=== PATIENT | male | born 1945 | race Caucasian/White ===

== ENCOUNTER 2018-07-11 06:45 | Day surgery (SDC) | payer OTHER, MEDICARE ==
[2018-07-11] MEDS ORDERED: Lidocaine 2% 5 ML SDV ONE (07:01)
[2018-07-11] MEDS ORDERED: fentaNYL 100 MCG/2 ML SDV ONE (07:02)
[2018-07-11] MEDS ORDERED: Propofol 200 MG/20 ML SDV ONE (07:02)
[2018-07-11] MEDS ORDERED: Midazolam 1 MG/ML 2 ML SDV ONE (07:02)
[2018-07-11] MEDS ORDERED: Bupivacaine 0.25%/EPINEPHrine 1:200,000 10 ML SDV ONE ×2 (07:49→09:09)
[2018-07-11] MEDS ORDERED: ceFAZolin 2 GM in Premix Bag 1 BAG IV ONE (08:00)
[2018-07-11] MEDS ORDERED: Lactated Ringers 1,000 ML IV SCH (08:00)
[2018-07-11] MEDS ORDERED: traMADol 50 MG Tab PO PRN (08:00)
[2018-07-11] MEDS ORDERED: Bupivacaine 0.25%/EPINEPHrine 1:200,000 10 ML SDV INJECT ONE (08:00)
--- NOTE | 2018-07-11 08:12 | PCM.PREANE ---
Preanesthetic Assessment - Anesthesia/Transfusion/Family Hx Anesthesia History: Prior Anesthesia Without Reaction Family History of Anesthesia Reaction: No Transfusion History: No Prior Transfusion(s) Intubation History: Unknown - Review of Systems General: No Symptoms Pulmonary: No Symptoms Cardiovascular: No Symptoms Gastrointestinal: No Symptoms Neurological: No Symptoms Other: Reports: None - Physical Assessment NPO Status Date: 07/11/18 NPO Status Time: 06:00 O2 Sat by Pulse Oximetry: 95 Respiratory Rate: 24 Vital Signs: Last Vital Signs Temp 35.9 C 07/11/18 07:25 Pulse 59 L 07/11/18 07:25 Resp 24 H 07/11/18 07:25 BP 120/76 07/11/18 07:25 Pulse Ox 95 07/11/18 07:25 Height: 1.75 m Weight: 122.924 kg ASA Class: 3 Mental Status: Alert & Oriented x3 Airway Class: Mallampati = 2 Dentition: Reports: Edentulous Thyro-Mental Finger Breadths: 3 Mouth Opening Finger Breadths: 3 ROM/Head Extension: Full Lungs: Decreased Breath Sounds, Crackles Cardiovascular: Irregular Rhythm - Allergies Allergies/Adverse Reactions: Allergies Allergy/AdvReac Type Severity Reaction Status Date / Time No Known Allergies Allergy Verified 07/09/18 15:48 - Blood Blood Available: No - Anesthesia Plan Pre-Op Medication Ordered: None - Acknowledgements Anesthesia Type Planned: MAC Pt an Appropriate Candidate for the Planned Anesthesia: Yes Alternatives and Risks of Anesthesia Discussed w Pt/Guardian: Yes Pt/Guardian Understands and Agrees with Anesthesia Plan: Yes PreAnesthesia Questionnaire HEENT History: Reports: Cataract, Hard of Hearing, Other (See Below) Other HEENT History: uses reading glasses, deaf in right ear Cardiovascular History: Reports: Afib, Heart Failure (in 2014), Hypertension Respiratory History: Reports: COPD, PE, Sleep Apnea Other Respiratory History: uses CPAP, 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 Gastrointestinal History: Reports: None, Hepatitis Other Gastrointestinal History: hx of Hepatitis B as a child Musculoskeletal History: Reports: Gout, Osteoarthritis Other Musculoskeletal History: arthritis in hip, hematoma right arm Neurological History: Reports: Concussion, Other (See Below) Other Neuro History: has tremors in his hands ("from medication") Endocrine/Metabolic History: Reports: Diabetes, Type II, Obesity/BMI 30+ (BMI 40 ) Hematologic History: Reports: Anticoagulation Therapy (off last four days) - Infectious Disease History Infectious Disease History: Reports: Hepatitis A - Past Surgical History Head Surgeries/Procedures: Reports: None HEENT Surgical History: Reports: Cataract Surgery Cardiovascular Surgical History: Reports: Other (See Below) Other Cardiovascular Surgeries/Procedures: placement of IVC filter Respiratory Surgical History: Reports: Lung Resection Other Respiratory Surgeries/Procedures: Left lower lobe removed due to "emphysema" GI Surgical History: Reports: Hernia, Inguinal - SUBSTANCE USE Smoking Status *Q: Former Smoker Tobacco Use Within Last Twelve Months: No Recreational Drug Use History: No - HOME MEDS Home Medications: Home Meds Albuterol Sulfate 1 vial INH Q6H PRN 07/09/18 [History] Allopurinol [Zyloprim] 100 mg PO DAILY 07/09/18 [History] Budesonide/Formoterol [Symbicort 80-4.5 MCG] 1 puff INH ASDIRECTED PRN 07/09/18 [History] Cephalexin [Keflex] 500 mg PO TID 07/09/18 [History] Cholecalciferol (Vitamin D3) [Vitamin D3] 1,000 unit PO DAILY 07/09/18 [History] Diltiazem HCl [Diltiazem 24Hr Cd] 180 mg PO BEDTIME 07/09/18 [History] Donepezil HCl 10 mg PO BEDTIME 07/09/18 [History] Gabapentin [Neurontin] 1,200 mg PO QPM 07/09/18 [History] Gabapentin [Neurontin] 600 mg PO QAM 07/09/18 [History] Hydrocodone/Acetaminophen [Hydrocodon-Acetaminophen 5-325] 1 tab PO TID PRN [History] Isosorbide Mononitrate [Isosorbide Mononitrate ER] 30 mg PO QAM 07/09/18 [ History] Nitroglycerin [Nitrostat] 0.4 mg SL Q5M PRN MDD 3 tab 07/09/18 [History] Pantoprazole Sodium 40 mg PO QAM 07/09/18 [History] Triamterene/Hydrochlorothiazid [Triamterene-HCTZ 37.5-25 MG] 1 cap PO QAM [History] Warfarin [Coumadin] 2 mg PO DAILY 07/09/18 [History] metFORMIN [Glucophage] 1,000 mg PO BIDMEALS 07/09/18 [History] tiZANidine HCl [Tizanidine HCl] 4 mg PO BID 07/09/18 [History] - CURRENT (IN HOUSE) MEDS Current Meds: Current Medications Cefazolin Sodium/Dextrose 2 gm (/ Premix) 50 mls @ 100 mls/hr IV ONETIME ONE Stop: 07/11/18 08:29 Lactated Ringer's (Ringers, Lactated) 1,000 mls @ 125 mls/hr IV ASDIRECTED SAADIA Tramadol HCl (Ultram) 50 mg PO Q4H PRN PRN Reason: Pain Discontinued Medications Bupivacaine HCl/Epinephrine Bitart (Marcaine 0.25%/Epinephrine 1:200,000) 10 ml INJECT ONETIME ONE Stop: 07/11/18 08:01 Bupivacaine HCl/Epinephrine Bitart (Marcaine 0.25%/Epinephrine 1:200,000) Confirm Administered Dose 10 ml .ROUTE .STK-MED ONE Stop: 07/11/18 07:50 Fentanyl (Sublimaze) Confirm Administered Dose 100 mcg .ROUTE .STK-MED ONE Stop: 07/11/18 07:03 Lidocaine (Xylocaine-Mpf 2%) Confirm Administered Dose 5 ml .ROUTE .STK-MED ONE Stop: 07/11/18 07:02 Midazolam HCl (Versed 1 Mg/Ml) Confirm Administered Dose 2 mg .ROUTE .STK-MED ONE Stop: 07/11/18 07:03 Propofol (Diprivan 20 Ml) Confirm Administered Dose 200 mg .ROUTE .STK-MED ONE Stop: 07/11/18 07:03
[2018-07-11] MEDS ORDERED: ceFAZolin 1 GM Vial ONE (08:32)
[2018-07-11] MEDS ORDERED: Sodium Chloride 0.9% 20 ML ONE (08:32)
[2018-07-11] MEDS ORDERED: fentaNYL 100 MCG/2 ML SDV IVPUSH PRN (09:32)
--- NOTE | 2018-07-11 09:56 | PCM.POSTAN ---
POST ANESTHESIA ASSESSMENT - MENTAL STATUS Mental Status: Alert, Oriented - RESPIRATORY Respiratory Status: Respiratory Rate WNL, Airway Patent, O2 Saturation Stable - CARDIOVASCULAR CV Status: Pulse Rate WNL, Blood Pressure Stable - GASTROINTESTINAL GI Status: No Symptoms - PAIN Pain Score: 6 - POST OP HYDRATION Hydration Status: Adequate & Stable - OBSERVATIONS Free Text/Narrative:: no anesthesia problems
--- NOTE | 2018-07-11 17:19 | PCM.OPNOTE ---
- General Post-Op/Procedure Note Date of Surgery/Procedure: 07/11/18 Operative Procedure(s): evacuation of large hematoma right arm. excision of skin eschar and intermediate closure of wound 6cm Pre Op Diagnosis: right arm hematoma with overlying eschar - on plavix Post-Op Diagnosis: Same Anesthesia Technique: Local, MAC Primary Surgeon: Joan Cooper Tax Investigator: Rossi Acevedo Complications: None Condition: Good Free Text/Narrative:: Intake & Output 07/11/18 07/11/18 07/11/18 07:59 15:59 23:59 Intake Total 600 Balance 600
--- NOTE | 2018-07-15 14:54 | OR ---
SURGEON: ASA VALDEZ MD DATE OF PROCEDURE: 07/11/2018 PREOPERATIVE DIAGNOSIS: Very large hematoma of right arm in the deep vein with a skin eschar overlying, the patient is on Plavix. POSTOPERATIVE DIAGNOSIS: Very large hematoma of right arm in the deep vein with a skin eschar overlying, the patient is on Plavix. PROCEDURES: 1. Evacuation of large hematoma of right arm. 2. Excision of skin eschar and intermediate closure of skin wound of 6 cm. METAL PATTERNMAKER: GRETA Coelho. REASON FOR AND ROLE OF METAL PATTERNMAKER: Retraction, prepping, draping, positioning and closure assistance. ANESTHESIA: Local MAC. INDICATIONS: Mr. Bender is a 72-year-old gentleman, seen today in evaluation for a very large hematoma of the right arm. It has been there for over a month and unfortunately has now necrosed some of the overlying skin. There is an eschar that has formed. The patient is on Plavix. We discussed risks and benefits of removal of the eschar as well as evacuation of the underlying hematoma. Risks and benefits were discussed including, but not limited to, bleeding, infection, damage to underlying or overlying structures, possible need for future interventions, possible scarring. He has been holding his Plavix. He was originally seen at the [facility] and sent to us in referral. PROCEDURE IN DETAIL: After informed consent was obtained and placed on the chart, the patient was brought to the operating theater and laid in the supine position. After adequate local MAC anesthesia was obtained, the area was prepped and draped and a time-out was completed to confirm side and site. After adequately prepping area with Betadine, attention was then paid to excision of eschar. This was done in an elliptical fashion for a total of 6 cm. Once adequately excised, attention was then paid to meticulous hemostasis of the skin edges and dissection was carried circumferentially around the hematoma down to the fascial layer of the forearm. There was some involvement of this and this was debrided thoroughly and copiously irrigated. Once adequately removed, the tourniquet was desufflated, meticulous hemostasis was obtained. Once adequately hemostased, a 1/2-inch [place] drain was placed, and then the skin was advanced with lateral undermining. Once undermined, deep stitches of 3-0 Monocryl were used to close the space and a 3-0 Prolene was used to close the skin in a horizontal mattress fashion. Once adequately closed, the wound was dressed with fluffs, Kerlix, ABD, and [place] wrap. The patient tolerated this well. All counts and needles were correct at the end of the case. FOLLOWUP INSTRUCTIONS: The patient will see us in clinic in 5 to 7 days for removal of the drain, sooner if any problems, questions, or concerns. He will continue over-the- counter medications for pain control and resume Plavix tomorrow. ROSY / MARILEE /[id number] MTDD
== END 2018-07-11 10:40 | disposition home or self-care (01) ==
LOC: MW.SDS 06:45
PROVIDERS: ATTEND Plastic Surgery
DX: S50.11XA Contusion of right forearm, initial encounter (principal); R23.4 Changes in skin texture; I11.0 Hypertensive heart disease with heart failure; I50.9 Heart failure, unspecified; J44.9 Chronic obstructive pulmonary disease, unspecified; E11.9 Type 2 diabetes mellitus without complications; E66.9 Obesity, unspecified; Z68.41 Body mass index [BMI] 40.0-44.9, adult; H91.91 Unspecified hearing loss, right ear; I48.91 Unspecified atrial fibrillation; G47.30 Sleep apnea, unspecified; M10.9 Gout, unspecified; Z87.891 Personal history of nicotine dependence; Z79.84 Long term (current) use of oral hypoglycemic drugs; Z79.02 Long term (current) use of antithrombotics/antiplatelets; Z79.899 Other long term (current) drug therapy; Z99.89 Dependence on other enabling machines and devices; W19.XXXA Unspecified fall, initial encounter
CPT/HCPCS: 11406; 12032; 25028; A9270; J0690; J2001; J2250; J2704; J3010; J3490; J7120; 00400

== ENCOUNTER 2021-12-09 15:29 | Emergency (ER) | payer OTHER ==
[2021-12-09] MEDS ORDERED: Furosemide 40 MG/4 ML VIAL IV ONE (16:30)
[2021-12-09 17:03] LABS: CARBON DIOXIDE,CO2 28.3 mmol/L (21.0-32.0); POTASSIUM,K 4.4 mmol/L (3.5-5.1)
[2021-12-09] MEDS ORDERED: cefTRIAXone 1 GM in Sodium Chloride 0.9% 50 ML IV ONE (18:21)
[2021-12-09] MEDS ORDERED: Sodium Chloride 0.9% 1,000 ML IV ONE (18:21)
== END 2021-12-09 19:50 | disposition home or self-care (01) ==
LOC: MW.ED 15:29
DX: J18.9 Pneumonia, unspecified organism (principal); J44.9 Chronic obstructive pulmonary disease, unspecified; I11.0 Hypertensive heart disease with heart failure; I50.9 Heart failure, unspecified; E11.9 Type 2 diabetes mellitus without complications; E66.9 Obesity, unspecified; Z68.41 Body mass index [BMI] 40.0-44.9, adult; Z79.899 Other long term (current) drug therapy; Z79.01 Long term (current) use of anticoagulants; Z79.84 Long term (current) use of oral hypoglycemic drugs; Z20.822 Contact with and (suspected) exposure to COVID-19
CPT/HCPCS: 36415; 71045; 80053; 81003; 83605; 83880; 85025; 85610; 87040; 87635; 93970; 96361; 96365; 96375; 99284; J0696; J1940; J7030; U0002